=== PATIENT | female | born 1995 | race Caucasian/White ===

== ENCOUNTER 2017-09-17 22:24 | Emergency (ER) | payer MEDICAID ==
[2017-09-18 00:19] VITALS: BP 130/78
[2017-09-18] MEDS ORDERED: MOTRIN PO ONE (00:19)
--- NOTE | 2017-09-18 00:39 | XRay Report ---
FINAL REPORT PROCEDURE: XR FOOT 2V LT TECHNIQUE: Left foot radiographs, AP, lateral, and oblique views. HISTORY: Left 4th toe injury COMPARISON: No prior studies are available for comparison. FINDINGS: Fracture (s) and/or Dislocation(s): None . Alignment: Normal. Joint space(s): Normal. Soft tissues: Normal. Bone mineralization: Normal. Foreign bodies: None. Calcaneal spurring: None. IMPRESSION: Negative examination.
--- NOTE | 2017-09-18 04:10 | Emergency Department Report ---
- General Chief Complaint: Wound/Laceration Stated Complaint: CUT TOE OPEN, LEG IS NUMB Time Seen by Provider: 09/18/17 04:10 Source: patient Mode of arrival: Ambulatory Limitations: No Limitations - History of Present Illness Initial Comments: 21-year-old female reports she stepped on a metal object around 10:00 Friday night and sustained a laceration to the bilateral per left fourth toe. Patient reports that she is not up-to-date on her tetanus. She has no other complaints at this time. -: During the night Time: 20:00 Extremity Location: Left: Foot (fourth toe) - Related Data Previous Rx's Medication Instructions Recorded Last Taken Type Acetaminophen [Acetaminophen TAB] 650 mg PO Q6HR PRN #20 tablet 11/08/14 Unknown Rx Nitrofurantoin Coke/M-Cryst 100 mg PO Q12HR #14 capsule 11/13/14 Unknown Rx [Macrobid CAP] Allergies Allergy/AdvReac Type Severity Reaction Status Date / Time No Known Allergies Allergy Unverified 11/08/14 00:09 ED Review of Systems ROS: Stated complaint: CUT TOE OPEN, LEG IS NUMB Other details as noted in HPI Comment: All other systems reviewed and negative Skin: other (cut on the bottom of her left forefoot toe pad) ED Past Medical Hx - Past Medical History Hx Hypertension: Yes - Surgical History Additional Surgical History: C-scetion - Social History Smoking Status: Never Smoker Substance Use Type: None - Medications Home Medications: Home Medications Medication Instructions Recorded Confirmed Last Taken Type Acetaminophen [Acetaminophen TAB] 650 mg PO Q6HR PRN #20 tablet 11/08/14 Unknown Rx Nitrofurantoin Coke/M-Cryst 100 mg PO Q12HR #14 capsule 11/13/14 Unknown Rx [Macrobid CAP] ED Physical Exam - General Limitations: No Limitations General appearance: alert, in no apparent distress - Head Head exam: Present: atraumatic, normocephalic - Eye Eye exam: Present: normal appearance - ENT ENT exam: Present: mucous membranes moist - Neurological Exam Neurological exam: Present: alert, oriented X3 - Skin Skin exam: Present: other (2 cm laceration to the left fourth toe) ED Course Vital Signs 09/18/17 00:10 Temperature 98.1 F Pulse Rate 67 Respiratory 16 Rate Blood Pressure 130/78 O2 Sat by Pulse 100 Oximetry - Laceration /Wound Repair Left Toe Wound Location: lower extremity Wound Length (cm): 2 Wound's Depth, Shape: flap Wound Explored: no foreign body removed Irrigated w/ Saline (ccs): 500 Betadine Prep?: Yes Volume Anesthetic (ccs): 5 Wound Repaired With: sutures Suture Size/Type: 4:0 Deep Layer Suture Size/Type: gut Sterile Dressing Applied?: Yes Progress: patient tolerated procedure well. - Nerve Block Consent Obtained: verbal consent Time Out Performed: Yes Local Anesthetic Used: Lidocaine 1% Amount of anesthesia used: 5 Side: left, right Nerve Blocks: digital Intraoral Nerve Block: supraperiosteal Procedure Successful: Yes Complications: none Patient Tolerated Procedure: well ED Medical Decision Making - Radiology Data Radiology results: report reviewed, image reviewed FINDINGS: Fracture (s) and/or Dislocation(s): None . Alignment: Normal. Joint space(s): Normal. Soft tissues: Normal. Bone mineralization: Normal. Foreign bodies: None. Calcaneal spurring: None. IMPRESSION: Negative examination. Transcribed By: DFN Dictated By: KAMRON MENDES MD Electronically Authenticated By: KAMRON MENDES MD Signed Date/Time: 09/18/1734 DD/ TD/TT: 09/18/1734 - Medical Decision Making Patient has been evaluated by this provider fast track. Patient was given tetanus shot. Patient soaked in 500 mL of Betadine solution. Provider was able to place for absorbable sutures to the left fourth toe. Patient was given ibuprofen in triage for pain management. Discussed with patient to please keep wound clean and dry. Return back to the emergency room with his any signs of infection. Critical care attestation.: If time is entered above; I have spent that time in minutes in the direct care of this critically ill patient, excluding procedure time. ED Disposition Clinical Impression: Laceration of toe of left foot Qualifiers: Encounter type: initial encounter Toe: lesser toe Damage to nail status: without damage Foreign body presence: without foreign body Qualified Code(s): S91.115A - Laceration without foreign body of left lesser toe(s) without damage to nail, initial encounter Disposition: TO HOME OR SELFCARE Is pt being admited?: No Does the pt Need Aspirin: No Condition: Stable Instructions: Laceration (ED), Absorbable Suture Care (ED) Additional Instructions: Keep wound clean and dry. Return back to the emergency room with this 80-sized appendix infection such as increased swelling and increased pain. Discharge skin changing to dark. Referrals: PRIMARY CARE, [Primary Care Provider] - 3-5 Days [facility] [Provider Group] - 3-5 Days Forms: Work/School Release Form(ED)
[2017-09-18] MEDS ORDERED: BOOSTRIX IM ONE (05:24)
== END 2017-09-18 05:36 | disposition home or self-care (01) ==
LOC: ED 22:24
DX: S91.115A Laceration without foreign body of left lesser toe(s) without damage to nail, initial encounter (principal); I10 Essential (primary) hypertension; X58.XXXA Exposure to other specified factors, initial encounter; Y93.89 Activity, other specified; Y92.89 Other specified places as the place of occurrence of the external cause; Y99.8 Other external cause status
CPT/HCPCS: 90715; 99283